=== PATIENT | male | born 1945 | race Caucasian/White ===

== ENCOUNTER → 2018-09-08 | Outpatient (CLI) | payer OTHER ==
[~2018-09-08] MED LIST: AMARYL; CARDURA; DIOVAN HCT 320/1 TA2; LIPITOR; METFORMIN HCL1000 MG; METOPROLOL SUC100 MG; NORVASC10 MG; SYNTHROID75 MCG; TRICOR145 MG
== END | disposition home or self-care (01) ==
LOC: NUCLEAR 07:48
DX: I20.9 Angina pectoris, unspecified (principal); R07.89 Other chest pain
CPT/HCPCS: 78452; 93017; A9500

== ENCOUNTER 2020-10-24 07:24 | Outpatient (CLI) | payer OTHER | END 2020-10-24 07:26 | disposition home or self-care (01) | LOC: NUCLEAR 07:24 | PROVIDERS: ATTEND Internal Medicine Cardiovascular Disease | DX: I50.1 Left ventricular failure, unspecified (principal); I25.9 Chronic ischemic heart disease, unspecified | CPT/HCPCS: 78452; 93017; A9500 ==

== ENCOUNTER → 2023-01-07 | Outpatient (CLI) | payer OTHER | END | disposition home or self-care (01) | LOC: NUCLEAR 07:00 | PROVIDERS: ATTEND Internal Medicine Cardiovascular Disease | DX: I25.10 Atherosclerotic heart disease of native coronary artery without angina pectoris (principal) | CPT/HCPCS: 78452; 93017; A9500; J0153 ==

== ENCOUNTER 2024-04-18 12:26 | Outpatient (CLI) | payer OTHER | END 2024-04-18 12:29 | disposition home or self-care (01) | LOC: RAD 12:26 | PROVIDERS: ATTEND Internal Medicine Cardiovascular Disease | DX: I11.9 Hypertensive heart disease without heart failure (principal); E78.00 Pure hypercholesterolemia, unspecified ==

== ENCOUNTER 2024-09-25 12:49 | Outpatient (CLI) | payer OTHER | END 2024-09-25 12:54 | disposition home or self-care (01) | LOC: RAD 12:49 | PROVIDERS: ATTEND Internal Medicine Cardiovascular Disease | DX: C90.00 Multiple myeloma not having achieved remission (principal) ==